=== PATIENT | male | born 1950 ===

== ENCOUNTER → 2025-05-31 | Outpatient (REF) | payer OTHER ==
[2025-05-31 19:18] LABS: BASO # 0.0 10^3/uL (0.0-0.2); BASO % 0.4 % (0.0-1.0); EOS # 0.1 10^3/uL (0.0-0.5); EOS % 1.7 % (0.0-3.0); LYMPH # 1.6 10^3/uL (1.5-5.0); LYMPH % 20.9 % (24.0-44.0); MONO # 0.6 10^3/uL (0.0-0.8); MONO % 7.9 % (2.0-8.0); NEUTROPHILS # 5.4 10^3/uL (1.5-8.5); NEUTROPHILS % 68.6 % (36.0-66.0); PLATELET COUNT, AUTOMATED 207 10^3/uL (150-450)
[2025-05-31 19:28] LABS: IRON (FE) 110.0 UG/DL (65-175); PERCENT SATURATION 34.1 % (19.7-50.0)
== END ==
LOC: M LAB REF 17:38
PROVIDERS: ATTEND Orthopaedic Surgery Adult Reconstructive Orthopaedic Surgery
DX: Z01.818 Encounter for other preprocedural examination (principal); M25.551 Pain in right hip; M16.11 Unilateral primary osteoarthritis, right hip